=== PATIENT | female | born 1960 | race Caucasian/White ===

== ENCOUNTER → 2017-09-21 | Outpatient (CLI) | END | disposition home or self-care (01) ==

== ENCOUNTER 2022-02-18 13:42 | Inpatient (IN) | payer MEDICARE, OTHER ==
[~2022-02-18] VITALS: Ht 170.2 cm; Wt 62.6 kg
[~2022-02-18 13:42] MED LIST: ASPI81CH; Armour Thyroid15 MG; BUPROPION XL150 M1 PO; CETI5 PO; COQ1050 MG PO; Chantix1 MG PO; Cymbalta20 MG; ERGO50000; EUTHYROX50 MC1 PO; FURO20 PO; FURO40 PO; GABA100; HUMALOG KW100 UNIT/1 SC; IMITREX100 MG PO; INSULANPEN SC; LEVO-T50 MCG; LINZESS145 MCG PO; Lialda1.2 GM PO; NEURONTIN300 MG PO; NICO21TP TOP; OMEG1CAP30 PO; ONDA4ODT MM; OXYC10ER; OXYC10TA19 PO; OXYCODONE HCL E PO; Omeprazole20 M1; Omeprazole20 M1 PO; PIOG15; PIOG45; PRENATAL TABLE1 EAC2; Prinivil10 MG PO; QUETIAPINE FUM PO; QUIN10 PO; TANZEUM30 MG/0.5; TRULICITY3 MG/0.5 M; VENL75ER; VENL75ER PO; VIT B
[2022-02-18 14:19] LABS: Source, Urine Clean Catch
[2022-02-18 14:20] LABS: Base Excess Venous 4.1 mmol/L; Bicarbonate Venous 25.7 mmol/L (24.0-30.0); PCO2 Venous 58.4 mmHg (38-42); pH Blood Venous 7.32 (7.34-7.37)
[2022-02-18 14:23] LABS: BASOPHILS ABSOLUTE AUTO 0.05 K/mm3 (0.00-0.23); BASOPHILS PERCENT AUTO 1 % (0-2); EOSINOPHILS PERCENT AUTO 2 % (0-6); Hematocrit 47.4 % (33.0-51.0); Hemoglobin 15.5 g/dL (11.5-16.0); IMMATURE GRAN ABSOLUTE AUTO 0.03 K/mm3 (0.00-0.10); IMMATURE GRAN PERCENT AUTO 0 % (0-1); LYMPHOCYTES ABSOLUTE AUTO 1.34 K/mm3 (0.84-5.20); LYMPHOCYTES PERCENT AUTO 14 % (21-46); MONOCYTES ABSOLUTE AUTO 0.59 K/mm3 (0.16-1.47); MONOCYTES PERCENT AUTO 6 % (4-13); Mean Corpuscular HGB Conc 32.7 g/dL (31.5-36.5); Mean Corpuscular Volume 92 fL (80-100); NEUTROPHILS ABSOLUTE AUTO 7.18 K/mm3 (1.96-9.15); NEUTROPHILS PERCENT AUTO 77 % (41-73); Platelet Count 195 K/mm3 (150-400); RDW Coefficient Variation 12.4 % (11.7-14.2); RDW Standard Deviation 41.9 fL (35.1-46.3); Red Blood Cell Count 5.16 M/mm3 (3.80-5.20); White Blood Cell Count 9.39 K/mm3 (4.00-11.30)
[2022-02-18 14:27] LABS: Appearance, Urine Clear (Clear); Bilirubin, Urine Neg (Neg); Blood, Urine Neg (Neg); Color, Urine Yellow (P-Yellow); Glucose Qualitative, Urine 4+ (Neg); Ketones, Urine Neg (Neg); Leukocyte Esterase, Urine 1+ (Neg); Nitrite, Urine Neg (Neg); Protein, Urine Neg (Neg); Urobilinogen, Urine NORM (Normal)
[2022-02-18 14:45] LABS: Bacteria Few /hpf; Red Blood Cells, Urine 0-2 /hpf (0-2); Squamous Epithelial Cells Few /hpf (Few)
[2022-02-18 14:49] LABS: Beta-hydroxybutyrate 2.5 mg/dL (0.2-2.8)
[2022-02-18 14:53] LABS: Albumin, Blood 3.4 g/dL (3.4-5.0); Albumin/Globulin Ratio 0.9 (0.8-1.8); Bilirubin, Total 0.5 mg/dL (0.1-1.0); Bun/Creatinine Ratio 13.9 (12.0-20.0); Calcium, Blood 9.4 mg/dL (8.5-10.1); Creatinine, Blood 1.51 mg/dL (0.40-1.00); Globulin, Blood 3.6 g/dL (2.2-4.0); Potassium, Blood 4.8 mmol/L (3.5-5.5)
[2022-02-18 15:47] LABS: Influenza A, PCR NEGATIVE (NEGATIVE); Influenza B, PCR NEGATIVE (NEGATIVE); Resp Syncytial Virus, PCR NEGATIVE (NEGATIVE); SARS-Cov-2 (COVID-19) PCR, MMC NEGATIVE (NEGATIVE)
[2022-02-18 18:09] LABS: Glucose, Blood 728 mg/dL (70-99)
--- NOTE | 2022-02-18 19:09 | NUR ---
ADMISSION, TO THE FLOOR AT 1813, REPORT FROM SHIRA BORGES AUTOMATION MACHINE OPERATOR, PATIENT ALERT AND ORIENTED, INSULING INFUSING, CALL LIGHT WITH IN REACH, REPORT TO WAI JOHNSON RN
--- NOTE | 2022-02-18 20:00 | NUR ---
ASSUMED CARE OF PT AT 1915. REPORT RECEIVED. PT PRESENTS IN BED. INSULIN DRIP HAD BEEN TURNED TO 5.8 UNITS PER HOUR SECONDARY TO DROP IN GLUCOSE LEVELS. SEE [facility] VALUES FOR DETAILS. SUBSEQUENTLY WITH ADDITIONAL > DROP IN GLUCOSE HAVE DECREASED INSULIN TO 2 UNITS PER HOUR. PT HAS JUST EATEN HALF SANDWHICH SOME CHEESE, AND SUGAR FREE JELLO. WILL ADJUST INSULIN DRIP ACCORDINGLY WITH NEXT HOURLY GLUCOSE CHECK. PT TEACHING ON DIABETESE WITH GLUCOSE MONITORING DONE. DISCUSSED [facility] ISSUES WITH UNCONTROLLED GLUCOSE LEVELS. PT VERBALIZES UNDERSTANDING. WILL REVIEW CHART AND PLAN OF CARE FOR THIS PT.
[2022-02-18 23:39] LABS: Bun/Creatinine Ratio 13.8 (12.0-20.0); Calcium, Blood 8.9 mg/dL (8.5-10.1); Creatinine, Blood 1.3 mg/dL (0.40-1.00); Potassium, Blood 3.7 mmol/L (3.5-5.5)
--- NOTE | 2022-02-19 00:22 | NUR ---
INSULIN DRIP HAS BEEN ON STANDBY SINCE 2299. WILL DO Q 2 HOUR GLUCOSE CHECKS. PT ADVISED OF CHANGE, AND THAT IF SHE FEELS HER GLUCOSE LEVEL IS DROPPING, THAT SPOT CHECK CAN BE DONE EARLIER. PT VERBALIZES AGREEMENT. WILL CONTINUE TO MONITOR.
--- NOTE | 2022-02-19 01:41 | NUR ---
PT HAS REMAINED OFF INSULIN DRIP. BLOOD GLUCOSE LEVEL DID INCREASE TO 170'S. PT HAS HAD SOME FOOD TO EAT DURING LATE EVENING. WILL 0600 GLUCOSE CHECK THEN IF GLUCOSE LEVEL REMAINS STABLE WILL CHANGE TO AC AND HS.
[2022-02-19 03:38] LABS: BASOPHILS ABSOLUTE AUTO 0.07 K/mm3 (0.00-0.23); BASOPHILS PERCENT AUTO 1 % (0-2); EOSINOPHILS ABSOLUTE AUTO 0.45 K/mm3 (0.00-0.68); EOSINOPHILS PERCENT AUTO 4 % (0-6); Hematocrit 40.1 % (33.0-51.0); Hemoglobin 13.7 g/dL (11.5-16.0); IMMATURE GRAN ABSOLUTE AUTO 0.03 K/mm3 (0.00-0.10); IMMATURE GRAN PERCENT AUTO 0 % (0-1); LYMPHOCYTES ABSOLUTE AUTO 2.73 K/mm3 (0.84-5.20); LYMPHOCYTES PERCENT AUTO 27 % (21-46); MONOCYTES ABSOLUTE AUTO 0.84 K/mm3 (0.16-1.47); MONOCYTES PERCENT AUTO 8 % (4-13); Mean Corpuscular HGB Conc 34.2 g/dL (31.5-36.5); Mean Corpuscular Volume 88 fL (80-100); Mean Platelet Volume 11.4 fL (9.1-12.4); NEUTROPHILS PERCENT AUTO 60 % (41-73); Platelet Count 189 K/mm3 (150-400); RDW Coefficient Variation 11.9 % (11.7-14.2); RDW Standard Deviation 38.5 fL (35.1-46.3); Red Blood Cell Count 4.57 M/mm3 (3.80-5.20); White Blood Cell Count 10.22 K/mm3 (4.00-11.30)
[2022-02-19 03:58] LABS: Bun/Creatinine Ratio 15.3 (12.0-20.0); Calcium, Blood 8.8 mg/dL (8.5-10.1); Creatinine, Blood 1.18 mg/dL (0.40-1.00); Magnesium, Blood 2.3 mg/dL (1.6-2.4); Potassium, Blood 4.1 mmol/L (3.5-5.5)
--- NOTE | 2022-02-19 05:15 | NUR ---
PT TAKES ALL HER MONITORING WIRES OF BLOOD PRESSURE CUFF OFF AND EXITS HER ROOM. WAS GOING TO LEAVE THE UNIT. PT STATES SHE WANTED TO GO WALK AROUND THE HOSPITAL. BECOMES ARGUMENTIVE. PT HAD THROWN ALL HER WIRES AND TUBES ON THE FLOOR OF HER ROOM. BECOMES ANGRY TO BE INFORMED THAT GENERALLY ICU IS A CLOSED UNIT. OFFER MADE FOR AREA TO AMBULATE IN UNIT. PT STATED SHE DID NOT LIKE TO BE "AROUND THESE TYPE OF PEOPLE" REFERRING TO ICU PATIENTS. WILL SEE IF HOSPITALIST WOULD BE INTERESTED IN STATUS CHANGING PT ALLOW PT TO BE ON ANOTHER UNIT.
--- NOTE | 2022-02-19 05:18 | NUR ---
PT HAS BEEN STATUS CHANGED TO MEDICAL NO TELE. PENDING ROOM ASSIGNMENT
--- NOTE | 2022-02-19 06:16 | NUR ---
PT AMBULATES OUT OF ICU TO ROOM 309 ACCOMPANIED BY LEN MUNSON. PER PCT, PT EXPRESSED TO HER THAT SHE WAS ANGRY THAT THE DOCTOR DID NOT ORDER HER THE DOSE OF PAIN MEDICATION THAT SHE TAKES AT HOME. REPORT WAS CALLED TO ARYA HOUSTON. ALLOWED FOR QUESTIONS.
--- NOTE | 2022-02-19 06:29 | NUR ---
PATIENT ARRIVED IN ROOM 303 AT 0625. UP INDEPENDENTLY IN [place], WANTING TO GO OUT TO WALK SOON SHE WAS BROUGHT INTO ROOM. COMPLAINTS ABOUT HER REGULAR OXYCODONE DOSE BEING "CUT IN HALF" AND BEING DENIED HER SLEEPING MEDICINE. PATIENT STATED SHE NOW HAS A VAGINAL YEAST INFECTION. ATTEMPTED TO EXPLAIN THE CORRELATION BETWEEN SEVERE PROLONGED HYPERGLYCEMIA AND THE GROWTH OF YEAST. MATTER WILL NEED RE EDUCATION AFTER PATIENT HAS SETTLED.
--- NOTE | 2022-02-19 06:32 | NUR ---
CALL RECEIVED FROM RECEIVING RN, CELSO ASKING IF PT WAS COMING TO ROOM. INFORMED HER THAT PT WAS ESCORTED TO ROOM 309 BY ICU PCT. CELSO INFORMED THIS RN THAT IN ROOM 309 THERE WAS ONLY A CUP ON THE TABLE AND THAT THE PATIENT WAS NOT PRESENT. NOT ABLE TO LOCATE.
[2022-02-19] MEDS ORDERED: NOVOLIN 70100 UNIT/3 SC (08:45)
--- NOTE | 2022-02-19 09:01 | NUR ---
PT AOX4 DISCHARGED AT 0900 WITH ALL PERSONAL BELONGINGS. PT REFUSES ESCORT OUT OF HOSPITAL AND INSISTED ON WALKING OUT ON HER OWN. MEDICATIONS [facility]ED TO [id number] [address]. PT TREATED FOR CBG OF 290 PER EMAR. ALL PAPER WORK REVIWED AND PT VERBALIZED UNDERSTADING OF INSTRUCTIONS.
[2022-05-10] MEDS ORDERED: Lisinopril2.5 MG PO (10:59)
[2022-05-10] MEDS ORDERED: FURO40 PO (11:00)
[2022-05-10] MEDS ORDERED: LIVALO4 MG PO (11:01)
[2022-05-10] MEDS ORDERED: BUPR150ER PO (11:01)
[2022-05-10] MEDS ORDERED: TRULICITY3 MG/0.5 M (11:03)
== END 2022-02-19 08:59 | disposition home or self-care (01) | DRG 638 ==
LOC: ER 13:42 → PCU 16:23 → ICUW 18:09 → MEDS 02-19 06:29
PROVIDERS: Emergency Medicine; Physician Assistant; ADMIT Internal Medicine
DX: E11.00 Type 2 diabetes mellitus with hyperosmolarity without nonketotic hyperglycemic-hyperosmolar coma (NKHHC) (principal); F11.20 Opioid dependence, uncomplicated; N17.9 Acute kidney failure, unspecified; Z20.822 Contact with and (suspected) exposure to COVID-19; F17.210 Nicotine dependence, cigarettes, uncomplicated; I12.9 Hypertensive chronic kidney disease with stage 1 through stage 4 chronic kidney disease, or unspecified chronic kidney disease; E11.22 Type 2 diabetes mellitus with diabetic chronic kidney disease; N18.32 Chronic kidney disease, stage 3b; G89.4 Chronic pain syndrome; F41.8 Other specified anxiety disorders; E03.9 Hypothyroidism, unspecified; E11.40 Type 2 diabetes mellitus with diabetic neuropathy, unspecified; G43.909 Migraine, unspecified, not intractable, without status migrainosus; K58.9 Irritable bowel syndrome, unspecified; Z87.11 Personal history of peptic ulcer disease; Z90.49 Acquired absence of other specified parts of digestive tract; Z98.51 Tubal ligation status; Z98.891 History of uterine scar from previous surgery; Z79.891 Long term (current) use of opiate analgesic; Z79.899 Other long term (current) drug therapy
CPT/HCPCS: 0241U; 36415; 80048; 80053; 81001; 82010; 82803; 82947; 83735; 84100; 85025; 87086; 93005; 93010; 96361; 96374; 99285-25; A9270; J0696; J1815; J7030

== ENCOUNTER 2022-05-11 07:47 | Day surgery (SDC) | payer MEDICARE, OTHER ==
[~2022-05-11] VITALS: Ht 157.5 cm; Wt 66.6 kg
[~2022-05-11 07:47] MED LIST changes: +BUPR150ER PO; +LIVALO4 MG PO; +Lisinopril2.5 MG PO; +NOVOLIN 70100 UNIT/3 SC
--- NOTE | 2022-05-11 08:32 | NUR ---
05/11/22 0832 Michele Lozano HISTORY, CHART, MEDICATIONS AND ALLERGIES REVIEWED BEFORE START OF PROCEDURE. PATIENT CONFIRMS NPO STATUS AND AGREES WITH SCHEDULED PROCEDURE. 3-LEAD EKG REVIEWED WITH PHYSICIAN PRIOR TO START OF PROCEDURE. MONITOR INTACT WITH CONTINUOUS PULSE OXIMETRY,CAPNOGRAPHY, 3-LEAD EKG, INTERMITTENT BP. SUPPLEMENTAL O2 TO BE TITRATED THROUGHOUT PROCEDURE TO MAINTAIN O2 SATURATION ABOVE 90%. PATIENT DETERMINED TO BE ASA APPROPRIATE FOR PROPOFOL SEDATION PRIOR TO START OF PROCEDURE BY DR. HENRY.
--- NOTE | 2022-05-11 09:22 | NUR ---
Discharge instructions reviewed with patient. Patient verbalizes understanding. Copy given to patient to take home. Discharged via wheelchair to private car for ride home.
== END 2022-05-11 09:24 | disposition home or self-care (01) ==
LOC: ORSCMMR 07:47 → ORD 08:30 → ORSCMMR 08:30
PROVIDERS: Internal Medicine Gastroenterology
PROC: 0DBN8ZX Excision of Sigmoid Colon, Via Natural or Artificial Opening Endoscopic, Diagnostic (ICD-10-PCS; principal; 2022-05-11 08:30)
DX: Z12.11 Encounter for screening for malignant neoplasm of colon (principal); K63.5 Polyp of colon; Z86.010 Personal history of colon polyps; Z80.0 Family history of malignant neoplasm of digestive organs; E11.9 Type 2 diabetes mellitus without complications; F32.A Depression, unspecified; E03.9 Hypothyroidism, unspecified; Z87.11 Personal history of peptic ulcer disease; K21.9 Gastro-esophageal reflux disease without esophagitis; E78.00 Pure hypercholesterolemia, unspecified; G89.29 Other chronic pain; Z79.899 Other long term (current) drug therapy; F17.210 Nicotine dependence, cigarettes, uncomplicated
CPT/HCPCS: 82947; 88305; J2250; J2704; J7120

== ENCOUNTER → 2023-01-20 | Outpatient (CLI) | payer MEDICARE, OTHER ==
[2023-01-20 18:00] LABS: BASOPHILS ABSOLUTE AUTO 0.07 K/mm3 (0.00-0.23); BASOPHILS PERCENT AUTO 1 % (0-2); EOSINOPHILS ABSOLUTE AUTO 0.33 K/mm3 (0.00-0.68); EOSINOPHILS PERCENT AUTO 4 % (0-6); Hematocrit 41.8 % (33.0-51.0); Hemoglobin 13.6 g/dL (11.5-16.0); IMMATURE GRAN ABSOLUTE AUTO 0.01 K/mm3 (0.00-0.10); IMMATURE GRAN PERCENT AUTO 0 % (0-1); LYMPHOCYTES ABSOLUTE AUTO 2.51 K/mm3 (0.84-5.20); LYMPHOCYTES PERCENT AUTO 27 % (21-46); MONOCYTES ABSOLUTE AUTO 0.78 K/mm3 (0.16-1.47); MONOCYTES PERCENT AUTO 9 % (4-13); Mean Corpuscular HGB 30.4 pg (26.0-34.0); Mean Corpuscular HGB Conc 32.5 g/dL (31.5-36.5); Mean Corpuscular Volume 93 fL (80-100); Mean Platelet Volume 11.2 fL (9.1-12.4); NEUTROPHILS ABSOLUTE AUTO 5.45 K/mm3 (1.96-9.15); NEUTROPHILS PERCENT AUTO 60 % (41-73); Platelet Count 205 K/mm3 (150-400); RDW Coefficient Variation 12.9 % (11.7-14.2); RDW Standard Deviation 44.4 fL (35.1-46.3); Red Blood Cell Count 4.48 M/mm3 (3.80-5.20); White Blood Cell Count 9.15 K/mm3 (4.00-11.30)
[2023-01-20 18:17] LABS: Alanine Aminotransfer (ALT/SGP 30 U/L (12-78); Albumin, Blood 3.7 g/dL (3.4-5.0); Albumin/Globulin Ratio 1.1 (0.8-1.8); Alk Phos 93 U/L (50-136); Anion Gap 1 mmol/L (6-16); Aspartate Aminotrans (AST/SGOT 23 U/L (12-37); Bilirubin, Total 0.5 mg/dL (0.1-1.0); Blood Urea Nitrogen 29 mg/dL (8-24); Bun/Creatinine Ratio 14.9 (12.0-20.0); CO2, Blood 28 mmol/L (21-32); Calcium, Blood 9.1 mg/dL (8.5-10.1); Chloride, Blood 110 mmol/L (98-108); Cholesterol 180 mg/dL (50-200); Creatinine, Blood 1.95 mg/dL (0.40-1.00); Free Thyroxine 0.91 ng/dL (0.70-1.60); Globulin, Blood 3.4 g/dL (2.2-4.0); Glomerular Filtration Rate 28 (60-); Glucose, Blood 171 mg/dL (70-99); HDL Cholesterol 45 mg/dL (>39); LDL/HDL RATIO 1.6; Low Density Lipoprotein Chol 71 mg/dL (0-110); Potassium, Blood 4.2 mmol/L (3.5-5.5); Sodium, Blood 139 mmol/L (136-145); Total Protein, Blood 7.1 g/dL (6.4-8.2); Triglycerides 319 mg/dL (30-160); Triiodothyronine, Free 2.48 pg/mL (2.18-3.98); Very Low Density Lipoprot Chol 63 mg/dL (6-32)
== END | disposition home or self-care (01) ==
LOC: LAB SHORT 15:47 → LAB 15:47
PROVIDERS: Student in an Organized Health Care Education/Training Program
DX: E03.9 Hypothyroidism, unspecified (principal); E78.2 Mixed hyperlipidemia
CPT/HCPCS: 80053; 80061; 84439; 84443; 84481; 85025

== ENCOUNTER → 2023-09-01 | Outpatient (CLI) | payer MEDICARE, OTHER ==
[2023-09-04 13:09] LABS: CALCIUM, SERUM 8.9 mg/dL (8.7-10.3); CREATININE, SERUM 1.96 mg/dL (0.57-1.00); PHOSPHORUS, SERUM 3.3 mg/dL (3.0-4.3); POTASSIUM, SERUM 4.5 mmol/L (3.5-5.2)
== END ==
LOC: LAB 17:28 → LAB SHORT 17:28
PROVIDERS: Internal Medicine
DX: N18.32 Chronic kidney disease, stage 3b (principal)
CPT/HCPCS: 80069